=== PATIENT | female | born 1985 | race Caucasian/White ===

== ENCOUNTER → 2019-01-30 | Outpatient (CLI) | payer BC ==
--- NOTE | 2019-01-30 11:08 | Diagnostic Imaging Report ---
INDICATION: survey. TECHNIQUE: Multiple real-time grayscale images were obtained over the gravid uterus. COMPARISON: None FINDINGS: There is a single live fetus in a cephalic presentation. heart rate was recorded at 153 bpm. Placenta is anterior. Amniotic fluid index is 8.5 cm. survey demonstrates kidneys, bladder and stomach unremarkable. brain is unremarkable. There is a three-vessel cord with normal insertion. The spine is unremarkable. Four-chamber heart view is limited due to position and maternal body habitus. Maternal adnexa was not evaluated. Biometrical measurements are as follows: Biparietal 4.60 cm, age 20 weeks 0 days. Head circumference 17.82 cm, age 20 weeks 2 days. Abdominal circumference 16.65 cm, age 21 weeks 5 days. Femur length 3.71 cm, age 21 weeks 6 days. Sonographic estimate age: 21 weeks 0 days. Sonographic estimated date of delivery: 06/12/2019. Estimated Weight: 430 gm (+/- 63 gm). LMP percentile: 98%. heart rate: 153 beats per minute. number: 1 of 1. IMPRESSION: Single live IUP 21 weeks 0 days gestational age. Estimated date of confinement sonographically is 06/12/2019. survey is unremarkable although the four-chamber heart view was limited due to lie and maternal body habitus. Dictated by: Dictated on workstation # [id number]
== END ==
LOC: RAD 09:40
PROVIDERS: ATTEND Nurse Practitioner Women's Health
DX: Z36.89 Encounter for other specified antenatal screening (principal); Z3A.21 21 weeks gestation of pregnancy
CPT/HCPCS: 76805

== ENCOUNTER → 2019-03-27 | Outpatient (CLI) | payer BC ==
--- NOTE | 2019-03-27 13:51 | Diagnostic Imaging Report ---
INDICATION: Followup anatomy TECHNIQUE: Multiple real-time grayscale images were obtained over the gravid uterus. COMPARISON: 01/30/2019 FINDINGS: A single living intrauterine in the base presentation. Amniotic fluid index is 13.4. Placenta is anterior. Heart rate 143 bpm. There is a 4 chambered heart. IMPRESSION: Single living intrauterine with sonographic estimated gestational age 28 weeks 1 day and estimated date confinement 06/18/2019 Normal 4 chambered heart with a heart rate of 143 bpm. Dictated by: Dictated on workstation # [id number]
== END ==
LOC: RAD 12:27
PROVIDERS: ATTEND Obstetrics & Gynecology
DX: Z36.2 Encounter for other antenatal screening follow-up (principal); Z3A.28 28 weeks gestation of pregnancy
CPT/HCPCS: 76805

== ENCOUNTER → 2019-05-30 | Outpatient (CLI) | payer BC ==
--- NOTE | 2019-05-30 14:46 | Diagnostic Imaging Report ---
INDICATION: Evaluate growth. COMPARISON: March 27, 2019. TECHNIQUE: Multiple real-time grayscale images were obtained over the gravid uterus. FINDINGS: A single live intrauterine gestation is identified in a cephalic presentation. The placenta is anteriorly located without evidence of placenta previa. Amniotic fluid index is within normal limits at 10.0 cm with the largest single pocket measuring 3.9 cm. cardiac motion is documented at 152 bpm. biometrics are symmetric. They are consistent with an estimated gestational age of 37 weeks and 5 days. Therefore, there is estimated due date based upon this examination of June 15, 2019. Findings are consistent with clinical dating and there has been adequate interval growth since the prior examination. anatomy is not optimally evaluated secondary to advanced gestational age and lie. Maternal ovaries were unable to be visualized secondary to the gravid uterus. Biometrical measurements are as follows: Biparietal 9.01 cm, age 36 weeks 4 days. Head circumference 32.78 cm, age 37 weeks 2 days. Abdominal circumference 34.80 cm, age 38 weeks 5 days. Femur length 7.46 cm, age 38 weeks 2 days. Sonographic estimate age: 37 weeks 5 days. Sonographic estimated date of delivery: 06/15/2019. Estimated Weight: 3405 gm (+/- 497 gm). LMP percentile: 79%. heart rate: 152 beats per minute. number: 1 of 1. IMPRESSION: Single live intrauterine gestation in a cephalic presentation with an estimated gestational age of 37 weeks and 5 days. Therefore, there is an estimated due date based upon this examination of June 15, 2019. Findings are consistent with clinical dating and there has been adequate interval growth since the prior examination. No acute abnormality. Dictated by: Dictated on workstation # [id number]
== END ==
LOC: RAD 13:42
PROVIDERS: ATTEND Obstetrics & Gynecology
DX: O36.63X0 Maternal care for excessive fetal growth, third trimester, not applicable or unspecified (principal); Z3A.37 37 weeks gestation of pregnancy
CPT/HCPCS: 76805

== ENCOUNTER 2019-06-13 20:05 | Inpatient (IN) | payer BC ==
[~2019-06-13] VITALS: Ht 175.3 cm; Wt 139.6 kg
[~2019-06-13 20:05] MED LIST: AMPICILLIN FOR IV USE 2,000 MG in WATER (STERILE) FOR INJECTION 14.8 ML IV SCH
--- NOTE | 2019-06-13 20:10 | NUR ---
DEO BOBO presented to unit via ambulatory from ED, accompanied by so, with c/o INDUCTION. DEO BOBO weighed, gowned, voided, and to bed. EFHM and TOCO applied, VS taken. DEO BOBO oriented to bed controls, call light, TV, heat, and A/C controls. above and further assessments carried out by bety ruiz.
[2019-06-13] MEDS ORDERED: LACTATED RINGERS 1,000 ML IV SCH (20:17)
[2019-06-13] MEDS ORDERED: PNV11TAB5 PO (20:22)
[2019-06-13] MEDS ORDERED: MISOPROSTOL 100 MCG (CYTOTEC) TAB PO NR (20:30)
[2019-06-13] MEDS ORDERED: AMPICILLIN FOR IV USE 1,000 MG in WATER (STERILE) FOR INJECTION 7.4 ML IV SCH (20:30)
[2019-06-13] MEDS ORDERED: TERBUTALINE INJ 1 MG/ML (BRETHINE) AMP SC PRN (20:30)
[2019-06-13] MEDS ORDERED: PROMETHAZINE INJ 25 MG/ML (PHENERGAN) AMP IVP PRN (20:30)
[2019-06-13] MEDS ORDERED: ZOLPIDEM 5 MG (AMBIEN) TAB PO PRN (20:30)
[2019-06-13] MEDS ORDERED: MINERAL OIL CONCENTRATE 99.9% 15 ML UDC TOP PRN (20:30)
[2019-06-13] MEDS ORDERED: morphine INJ 10 MG/ML 1ML (SYR OR VIAL) IVP PRN (20:30)
[2019-06-13 20:40] VITALS: BP 149/72
[2019-06-13 21:09] LABS: BASOPHILS % (AUTO) 0 % (0-10); EOSINOPHILS % (AUTO) 0 % (0-10); HEMATOCRIT 39 % (35-52); HEMOGLOBIN 12.9 G/DL (11.5-16.0); LYMPHOCYTES # (AUTO) 1.3 X 10^3 (1.0-4.0); LYMPHOCYTES % (AUTO) 14 % (12-44); MEAN CORPUSCULAR HEMOGLOBIN 30 PG (25-34); MEAN CORPUSCULAR HGB CONC 33 G/DL (32-36); MEAN CORPUSCULAR VOLUME 90 FL (80-99); MEAN PLATELET VOLUME 10.1 FL (7.4-10.4); MONOCYTES # (AUTO) 0.4 X 10^3 (0.0-1.0); MONOCYTES % (AUTO) 4 % (0-12); NEUTROPHILS # (AUTO) 7.3 X 10^3 (1.8-7.8); NEUTROPHILS % (AUTO) 81 % (42-75); PLATELET COUNT 214 10^3/uL (130-400); RED CELL DISTRIBUTION WIDTH 15.6 % (10.0-14.5)
[2019-06-13] MEDS: D5 LR IV SOLUTION 1,000 ML IV SCH (21:15)
[2019-06-13 21:26] LABS: ALANINE AMINOTRANSFERASE 14 U/L (0-55); ALBUMIN 3.4 GM/DL (3.2-4.5); ALKALINE PHOSPHATASE 148 U/L (40-136); BILIRUBIN,TOTAL 0.3 MG/DL (0.1-1.0); BUN/CREATININE RATIO 12; CALCIUM 9.2 MG/DL (8.5-10.1); CARBON DIOXIDE 17 MMOL/L (21-32); CHLORIDE 108 MMOL/L (98-107); CREATININE SERUM 0.78 MG/DL (0.60-1.30); GFR ESTIMATED > 60; GLUCOSE 150 MG/DL (70-105); POTASSIUM 3.5 MMOL/L (3.6-5.0); SODIUM 137 MMOL/L (135-145); TOTAL PROTEIN 6.4 GM/DL (6.4-8.2)
--- OUTSIDE RECORDS SUMMARY | 2019-06-13 21:45 | XMS REPORT | Continuity of Care Document ---
Author Organization Unknown Address Unknown Phone Unavailable Allergies There is no data. Medications There is no data. Problems Date Dx Coded Attending Type Code Diagnosis Diagnosed By 03/02/2019 STEPHANI HINOJOSA SQUAD BOSS Ot Z36.89 ENCOUNTER FOR OTHER SPECIFIED 03/02/2019 STEPHANI HINOJOSA SQUAD BOSS Ot Z3A.21 21 WEEKS GESTATION OF 03/28/2019 BEASLEY DO, ELIZA C Ot Z36.2 ENCOUNTER FOR OTHER SCREENING 03/28/2019 BEASLEY DO, ELIZA C Ot Z3A.2 8 28 WEEKS GESTATION OF 04/03/2019 BEASLEY DO, ELIZA C Ot Z36.2 ENCOUNTER FOR OTHER SCREENING 04/03/2019 BEASLEY DO, ELIZA C Ot Z3A.2 8 28 WEEKS GESTATION OF 04/03/2019 BEASLEY DO, ELIZA C Ot Z36.2 ENCOUNTER FOR OTHER SCREENING 04/03/2019 BEASLEY DO, ELIZA C Ot Z3A.2 8 28 WEEKS GESTATION OF 04/20/2019 BEASLEY DO, ELIZA C Ot Z36.2 ENCOUNTER FOR OTHER SCREENING 04/20/2019 BEASLEY DO, ELIZA C Ot Z3A.2 8 28 WEEKS GESTATION OF 05/31/2019 BEASLEY DO, ELIZA C Ot O36.63X0 MATERNAL CARE FOR EXCESS GROWTH, T 05/31/2019 BEASLEY DO, ELIZA C Ot Z3A.3 7 37 WEEKS GESTATION OF 05/31/2019 BEASLEY DO, ELIZA C Ot O36.63X0 MATERNAL CARE FOR EXCESS GROWTH, T 05/31/2019 BEASLEY DO, ELIZA C Ot Z3A.3 7 37 WEEKS GESTATION OF 06/02/2019 BEASLEY DO, ELIZA C Ot O36.63X0 MATERNAL CARE FOR EXCESS GROWTH, T 06/02/2019 BEASLEY DO, ELIZA C Ot Z3A.3 7 37 WEEKS GESTATION OF 06/02/2019 BEASLEY DO, ELIZA C Ot O36.63X0 MATERNAL CARE FOR EXCESS GROWTH, T 06/02/2019 ELIZA BEASLEY DO Ot Z3A.3 7 37 WEEKS GESTATION OF 06/13/2019 ELIZA BEASLEY DO Ot O36.63X0 MATERNAL CARE FOR EXCESS GROWTH, T 06/13/2019 BEASLEY DO ELIZA Mayank Ot Z3A.3 7 37 WEEKS GESTATION OF Procedures There is no data. Results There is no data. Encounters ACCT No. Visit Date/Time Discharge Status Pt. Type Provider Facility Loc./Unit Complaint [id number] 05/30/2019 13:42:00 020 23:59:59 CLS Outpatient ELIZA BEASLEY DO [facility] LARGE FOR GESTATIONAL A GE FETUS AFFECTING MOTHER [id number] 03/27/2019 12:27:00 020 23:59:59 CLS Outpatient ELIZA BEASLEY DO [facility] EVALUATE ANATOMY NOT SE EN ON PRIOR US [id number] 01/30/2019 09:40:00 019 23:59:59 CLS Outpatient STEPHANI HINOJOSA APRN [facility]
[2019-06-13 22:50] VITALS: BP 133/74
[2019-06-14] VITALS (60 sets, daily range): BP systolic 98–143; BP diastolic 51–86
[2019-06-14] MEDS ORDERED: LACTATED RINGERS 1,000 ML IV SCH
[2019-06-14] MEDS: AMPICILLIN FOR IV USE 1,000 MG in WATER (STERILE) FOR INJECTION 7.4 ML IV SCH ×7 (01:04→20:57)
[2019-06-14] MEDS: MISOPROSTOL 100 MCG (CYTOTEC) TAB PO SCH ×5 (04:27→16:30)
[2019-06-14] MEDS: D5 LR IV SOLUTION 1,000 ML IV SCH ×3 (05:06→20:57)
[2019-06-14] MEDS ORDERED: OXYTOCIN PRE-MIX DRIP 500 ML IV SCH (13:23)
[2019-06-14] MEDS ORDERED: fentaNYL 2 mcg/ml BUPIVA 0.125 100 ML ONE (16:27)
[2019-06-14] MEDS ORDERED: AMPICILLIN FOR IV USE 2,000 MG in WATER (STERILE) FOR INJECTION 14.8 ML IV SCH (16:46)
[2019-06-14] MEDS ORDERED: fentaNYL INJECTION 100 MCG/2 ML AMP ONE (17:42)
[2019-06-14] MEDS ORDERED: LACTATED RINGERS 1,000 ML IV ONE (17:56)
[2019-06-14] MEDS ORDERED: METOCLOPRAMIDE INJ 10 MG/2 ML (REGLAN) IV PRN (18:00)
[2019-06-14] MEDS ORDERED: EPIDURAL (fentaNYL 2 MCG/ML BUPIVA 0.125%)100 ML BAG EPI PRN (18:00)
[2019-06-14] MEDS ORDERED: diphenhydrAMINE 50 MG/ML INJ (BENADRYL) IV PRN (18:00)
[2019-06-14] MEDS ORDERED: NALOXONE 0.4 MG/ML 1 ML (NARCAN) VIAL IV PRN ×2 (18:00)
[2019-06-14] MEDS ORDERED: ONDANSETRON 4 MG/2 ML (SDV) Z0FRAN IV PRN (18:00)
--- NOTE | 2019-06-14 20:08 | NUR ---
Dr. Mendoza updated on patient status. No new orders received at this time.
[2019-06-15] VITALS (47 sets, daily range): BP systolic 115–149; BP diastolic 55–80
[2019-06-15] MEDS ORDERED: LIDOCAINE/EPI 2% 1:200,00 (XYLOCAINE) 20 ML VIAL ONE (00:46)
[2019-06-15] MEDS: AMPICILLIN FOR IV USE 1,000 MG in WATER (STERILE) FOR INJECTION 7.4 ML IV SCH ×2 (00:56→05:34)
[2019-06-15] MEDS: D5 LR IV SOLUTION 1,000 ML IV SCH (05:34)
--- NOTE | 2019-06-15 08:01 | NUR ---
0759 Delivery of infant head. meconium stained fluid. Deelee suction at perineum via Dr Mendoza. 0801 of viable baby girl infant via Dr Mendoza. Loose nuchal cord x 1 was not reduced. Mouth and nose cleared via Dr Mendoza. Infant dried and stimulated and placed on mom's abdomen. Hubert Arguello RN assuming care of . [address] Mendoza and cut via Dad. Babe taken to warmer. 0810 Placenta delivered pitocin started per Dr soliman. Fundal massage. Fundus firm and at umbilicus. 0815 1 degree laceration repaired via Dr Mendoza with 3.0 Rapide. 0830 Dariana care and clean v-pad placed. Pt to semi fowlers and covered with warm blanket. Dad at bedside. Epidural stopped. Call light within reach. See nursing interventions.
--- NOTE | 2019-06-15 08:28 | NUR ---
0828Fundal massage. FF @ Umbilicus. mod amount of rubra. No clots express. Pt denies pain. IV infusing without difficulty. Skin w/d. No concerns voiced via pt. No s/s of distress. 0851 Fundal massage. FF @ Umbilicus. mod amount of rubra. No clots express. 0913Fundal massage. FF @ Umbilicus. mod amount of rubra. No clots express. 0928 Fundal massage. FF @ Umbilicus. mod amount of rubra. No clots express. 0940 Epidural cath removed without difficulty and tip intact.. Band aide applied. Site clean and dry. asymptomatic. 0941Fundal massage. FF @ Umbilicus. mod amount of rubra. No clots express. Pt eating breakfast. 0943 Fundal massage. FF @ Umbilicus. mod amount of rubra. No clots express. 1015 Fundal massage. FF 1 below umbilicus. mod amount of rubra. No clots express. See nursing interventions.
--- NOTE | 2019-06-15 08:39 | OB Labor & Delivery Record ---
Vag Delivery Note Vag Delivery Note Date of Delivery: 06/15/19 Preoperative Diagnosis: Marjorie Clifton is a 33 /Para 1/ , Gestational Age 39 2/7 weeks, gestational hypertension/mild preeclampsia, GBS + Postoperative Diagnosis: Same, meconium Surgeon: ELIZA BEASLEY Anesthesia: epidural Delivery Type: vaginal Findings: Viable famale infant, apgars 7/9, weight 8#2ounces Lacerations: 1st degree Intact placenta with 3 vessel cord. There was a nuchal cord delivered through. No body cord or shoulder dystocia Estimated Blood Loss: 250 ml Complications: None Condition: Stable Description of Procedure: The patient is a 33 year old female who presented for induction of labor at 39 2/7 weeks due to worsening blood pressures in the office (gestational hypertension/mild preeclampsia). She is GBS +. She was admitted and informed consent was obtained. Cervix was not favorable so misoprostol was used for cervical ripening. AROM was accomplished after 4 doses of misoprostol. She had also had 4 doses of IV ampicillin for GBS prophylaxis. AROM was accomplished at 2-3 cm, but baby was still -3 and there was meconium. There was oxytocin augmentation She progressed to complete dilatation at approximately 215 am, but she had no urge to push and head was still -2 station. She was allowed to labor down and in different positions until the head was lower and she had an urge to push. She then was set up for delivery and began to push. The 's head was delivered atraumatically in the JEREMI position. The shoulders and remainder of the 's body were then delivered without difficulty. Upon delivery, the head was held below the level of the perineum and the mouth and nares were Delee suctioned due to the meconium stained fluid. The cord was doubly clamped and cut and the infant was handed off to the pediatric staff. An intact placenta with 3-vessel cord delivered via Adelaida and there was found to be minimal bleeding.~ Vigorous fundal massage was performed and the fundus was found to be firm. IV oxytocin was given. Examination of the vagina and perineum revealed a 1st degree laceration repaired in the usual fashion with 3-0 vicryl suture. Following the repair, sponge, instrument and needle counts were correct. Mom and baby were both in stable condition in the labor suite. Vitals - Labs Vital Signs - I&O Vital Signs Date Time Temp Pulse Resp B/P (MAP) Pulse Ox O2 Delivery O2 Flow Rate FiO2 06/15/19 07:00 117 18 146/66 (92) Room Air 06/15/19 06:55 117 18 146/66 (92) Room Air 06/15/19 06:45 108 18 139/64 (89) Room Air 06/15/19 06:30 37.0 112 18 131/60 (83) Room Air 06/15/19 06:15 116 18 138/63 (88) Room Air 06/15/19 06:00 109 18 132/60 (84) Room Air 06/15/19 05:45 110 18 125/58 (80) Room Air 06/15/19 05:30 100 18 119/55 (76) Room Air 06/15/19 05:15 114 18 127/59 (81) Room Air 06/15/19 05:00 106 18 134/76 (95) Room Air 06/15/19 04:45 104 18 121/64 (83) Room Air 06/15/19 04:30 97 18 126/73 (90) Room Air 06/15/19 04:15 103 18 125/58 (80) Room Air 06/15/19 04:00 36.8 103 18 120/56 (77) Room Air 06/15/19 03:45 117 18 132/80 (97) Room Air 06/15/19 03:30 104 18 116/64 (81) Room Air 06/15/19 03:15 111 18 124/58 (80) Room Air 06/15/19 03:00 103 18 137/66 (89) Room Air 06/15/19 02:45 98 18 130/60 (83) Room Air 06/15/19 02:30 96 18 137/69 (91) Room Air 06/15/19 02:15 106 18 142/76 (98) Room Air 06/15/19 02:00 37.2 105 18 133/70 (91) Room Air 06/15/19 01:45 96 18 129/64 (85) Room Air 06/15/19 01:30 104 18 133/74 (93) Room Air 06/15/19 01:15 103 18 133/66 (88) Room Air 06/15/19 01:00 109 18 129/64 (85) Room Air 06/15/19 00:45 101 18 133/63 (86) Room Air 06/15/19 00:30 110 18 144/63 (90) Room Air 06/15/19 00:00 36.7 102 18 115/61 (79) Room Air 06/14/19 23:45 102 18 141/58 (85) Room Air 06/14/19 23:30 107 18 133/69 (90) Room Air 06/14/19 23:15 94 18 125/65 (85) Room Air 06/14/19 23:00 36.6 103 18 135/66 (89) Room Air 06/14/19 22:45 101 18 136/78 (97) Room Air 06/14/19 22:30 100 18 123/74 (90) Room Air 06/14/19 22:15 36.4 103 18 141/66 (91) Room Air 06/14/19 22:00 94 18 133/76 (95) Room Air 06/14/19 21:45 101 18 129/76 (93) Room Air 06/14/19 21:30 95 18 129/70 (89) Room Air 06/14/19 21:15 102 18 122/67 (85) Room Air 06/14/19 21:00 36.9 95 18 126/72 (90) Room Air 06/14/19 20:45 93 18 134/63 (86) Room Air 06/14/19 20:30 101 18 123/66 (85) Room Air 06/14/19 20:15 103 18 132/65 (87) Room Air 06/14/19 20:00 36.7 95 18 132/64 (86) Room Air 06/14/19 19:45 99 18 130/67 (88) Room Air 06/14/19 19:30 100 18 124/64 (84) Room Air 06/14/19 19:15 101 18 121/71 (88) Room Air 06/14/19 19:00 125 18 99/61 (74) Room Air 06/14/19 18:45 118 18 100/60 (73) Room Air 06/14/19 18:30 105 18 98/51 (67) 100 06/14/19 18:15 115 18 104/57 (73) 100 06/14/19 18:10 116 18 105/52 (69) 100 06/14/19 18:07 107 18 107/56 (73) 100 Room Air 06/14/19 18:03 103 18 111/56 (74) 100 06/14/19 18:00 37.0 113 18 109/56 (73) 100 06/14/19 17:56 106 18 113/53 (73) 100 06/14/19 17:53 100 18 109/53 (71) 100 06/14/19 17:50 110 18 106/53 (70) 100 06/14/19 17:47 113 18 128/61 (83) 100 06/14/19 17:43 119 18 128/58 (81) 100 06/14/19 17:40 100 18 136/65 (88) 98 06/14/19 17:37 109 18 135/68 (90) 98 06/14/19 17:34 109 20 131/67 (88) 100 06/14/19 17:31 110 20 125/67 (86) 100 06/14/19 17:28 113 20 131/75 (93) 100 06/14/19 17:25 101 20 128/79 (95) 100 06/14/19 17:22 101 20 128/79 (95) 100 06/14/19 17:19 103 20 127/62 (83) 100 06/14/19 17:16 97 20 128/66 (86) 100 06/14/19 17:13 97 20 128/66 (86) 100 06/14/19 17:10 105 20 132/79 (96) 100 06/14/19 17:07 110 18 132/79 (96) 100 06/14/19 16:30 37.2 95 18 100 Room Air 06/14/19 15:30 36.8 90 18 112/59 (76) Room Air 06/14/19 14:30 36.8 106 18 143/86 (105) 06/14/19 13:30 36.8 99 18 118/75 (89) 06/14/19 12:40 37.0 93 18 117/69 (85) Room Air 06/14/19 11:30 36.9 91 18 133/64 (87) Room Air 06/14/19 10:30 36.9 96 18 120/64 (82) Room Air 06/14/19 10:00 Room Air 06/14/19 09:30 37.4 100 18 137/78 (97) Room Air l I & O 06/15/19 07:00 Intake Total 3014.8 ml Balance 3014.8 ml Labs Microbiology 06/13/19 Urine Culture - Preliminary, Resulted Culture In Progress ELIZA BEASLEY DO June 15, 2019 08:39
[2019-06-15] MEDS ORDERED: OXYTOCIN PRE-MIX DRIP 500 ML IV SCH (08:43)
[2019-06-15] MEDS ORDERED: WITCH HAZEL(TUCKS) 40 EA JAR TOP PRN (08:45)
[2019-06-15] MEDS ORDERED: BENZOCAINE/MENTHOL (DERMOPLAST) 60 ML CAN TP PRN (08:45)
[2019-06-15] MEDS ORDERED: DIBUCAINE (NUPERCAINAL) 1% OINT 30 GM TOP PRN (08:45)
[2019-06-15] MEDS ORDERED: TETANUS,DIPTH,PERTUSS P/F (BOOSTRIX) 0.5 ML VIAL IM ONE (08:45)
[2019-06-15] MEDS ORDERED: MEASLES,MUMPS,RUBELLA 1 EA INJ SQ ONE (08:45)
[2019-06-15] MEDS: DOCUSATE SODIUM 100 MG (COLACE) CAP PO SCH ×2 (12:17→20:43)
[2019-06-15] MEDS: FERROUS SULF 325 MG (IRON) TAB PO SCH (12:17)
[2019-06-15] MEDS: IBUPROFEN 600 MG (MOTRIN) TAB PO SCH ×2 (12:17→17:50)
[2019-06-15] MEDS ORDERED: CATHETER FLUSH 10 ML SYR IV SCH (14:00)
--- NOTE | 2019-06-15 15:01 | Anesthesia-Regional Post-Op ---
Regional Patient Condition Mental Status: Alert, Oriented x3 Circulation: Same as Pre-Op Headache: Absent Sensation: Full Recovery Motor Block: Absent Post Op Complications Complications None Follow Up Care/Instructions Patient Instructions None needed. Anesthesia/Patient Condition Patient is doing well, C/O some Lt hip pain which appears to be unrelated to her epidural. She states that several positions were used during delivery. She has stable vital signs, states her epidural didn't work as well this time as last, but had no apparent adverse anesthesia problems. CARLOS PERKINS DO June 15, 2019 15:01
[2019-06-15] MEDS: ACETAMINOPHEN 500 MG TAB (TYLENOL) PO SCH (15:18)
--- NOTE | 2019-06-15 16:30 | NUR ---
Report received from FIOR Sifuentes. care assumed of pt.
[2019-06-16 00:27] VITALS: BP 125/63
[2019-06-16] MEDS: ACETAMINOPHEN 500 MG TAB (TYLENOL) PO SCH ×2 (00:29→08:31)
[2019-06-16] MEDS: IBUPROFEN 600 MG (MOTRIN) TAB PO SCH ×3 (00:29→12:19)
[2019-06-16 04:25] VITALS: BP 110/67
[2019-06-16 06:12] LABS: BASOPHILS % (AUTO) 0 % (0-10); EOSINOPHILS # (AUTO) 0.1 10^3/uL (0.0-0.3); EOSINOPHILS % (AUTO) 1 % (0-10); HEMATOCRIT 33 % (35-52); HEMOGLOBIN 10.8 G/DL (11.5-16.0); LYMPHOCYTES # (AUTO) 1.7 X 10^3 (1.0-4.0); LYMPHOCYTES % (AUTO) 19 % (12-44); MEAN CORPUSCULAR HEMOGLOBIN 30 PG (25-34); MEAN CORPUSCULAR HGB CONC 33 G/DL (32-36); MEAN CORPUSCULAR VOLUME 92 FL (80-99); MONOCYTES # (AUTO) 0.5 X 10^3 (0.0-1.0); MONOCYTES % (AUTO) 5 % (0-12); NEUTROPHILS # (AUTO) 6.9 X 10^3 (1.8-7.8); NEUTROPHILS % (AUTO) 75 % (42-75); PLATELET COUNT 147 10^3/uL (130-400); RED CELL DISTRIBUTION WIDTH 15.9 % (10.0-14.5); WHITE BLOOD COUNT 9.3 10^3/uL (4.3-11.0)
[2019-06-16] MEDS ORDERED: PRENATAL VITAMIN 1 EA TAB PO SCH (07:00)
[2019-06-16 08:27] VITALS: BP 125/76
[2019-06-16] MEDS: DOCUSATE SODIUM 100 MG (COLACE) CAP PO SCH (08:29)
[2019-06-16] MEDS: FERROUS SULF 325 MG (IRON) TAB PO SCH (08:29)
[2019-06-16 12:18] VITALS: BP 132/80
--- NOTE | 2019-06-16 12:35 | Postpartum Progress Note ---
Note Note Day # 1 s/p Subjective: Patient is without complaints. Ambulating, voiding. Tolerating a regular diet w ithout nausea or vomiting. Normal lochia. Pain is well controlled with oral pain medications. breast feeding Objective: 06/16/19 06/16/19 06/16/19 04:25 08:27 12:18 Temp 36.5 36.9 36.6 Pulse 87 103 84 Resp 16 20 18 B/P (MAP) 110/67 (81) 125/76 (92) 132/80 (97) Pulse Ox 97 97 O2 Delivery Room Air Room Air Room Air 06/16/19 00:00 Intake Total 2000 ml Balance 2000 ml Laboratory Tests Test 06/16/19 06:03 Range/Units White Blood Count 9.3 4.3-11.0 10^3/uL Red Blood Count 3.55 L 4.35-5.85 10^6/uL Hemoglobin 10.8 L 11.5-16.0 G/DL Hematocrit 33 L 35-52 % Mean Corpuscular Volume 92 80-99 FL Mean Corpuscular Hemoglobin 30 25-34 PG Mean Corpuscular Hemoglobin Concent 33 32-36 G/DL Red Cell Distribution Width 15.9 H 10.0-14.5 % Platelet Count 147 130-400 10^3/uL Mean Platelet Volume 10.0 7.4-10.4 FL Neutrophils (%) (Auto) 75 42-75 % Lymphocytes (%) (Auto) 19 12-44 % Monocytes (%) (Auto) 5 0-12 % Eosinophils (%) (Auto) 1 0-10 % Basophils (%) (Auto) 0 0-10 % Neutrophils # (Auto) 6.9 1.8-7.8 X 10^3 Lymphocytes # (Auto) 1.7 1.0-4.0 X 10^3 Monocytes # (Auto) 0.5 0.0-1.0 X 10^3 Eosinophils # (Auto) 0.1 0.0-0.3 10^3/uL Basophils # (Auto) 0.0 0.0-0.1 10^3/uL Physical Exam: General - Alert and oriented, no apparent distress Abdomen - Soft, appropriately tender to palpation, non-distended, fundus firm at umbilicus Extremities - no edema, negative Sourav's bilaterally Assessment: 1. post- day # 1, status post spontaneous vaginal delivery. Recovering well, hemodynamically stable [] Plan: Routine care. Encourage breast feeding. Encourage ambulation. Ferrous sulfate supplementation. Plan for discharge tomorrow Vitals - Labs Vital Signs - I&O Vital Signs Date Time Temp Pulse Resp B/P (MAP) Pulse Ox O2 Delivery O2 Flow Rate FiO2 06/16/19 12:18 36.6 84 18 132/80 (97) Room Air 06/16/19 08:27 36.9 103 20 125/76 (92) 97 Room Air 06/16/19 04:25 36.5 87 16 110/67 (81) 97 Room Air 06/16/19 00:27 36.8 88 20 125/63 (83) 98 Room Air 06/15/19 20:37 36.3 89 18 125/67 (86) 98 Room Air 06/15/19 16:30 37.4 95 18 120/55 (76) 97 Room Air I & O 06/16/19 07:00 Intake Total 2507.4 ml Balance 2507.4 ml Labs Laboratory Tests 06/16/19 06:03: White Blood Count 9.3, Red Blood Count 3.55L, Hemoglobin 10.8L, Hematocrit 33L, Mean Corpuscular Volume 92, Mean Corpuscular Hemoglobin 30, Mean Corpuscular Hemoglobin Concent 33, Red Cell Distribution Width 15.9H, Platelet Count 147, Mean Platelet Volume 10.0, Neutrophils (%) (Auto) 75, Lymphocytes (%) (Auto) 19, Monocytes (%) (Auto) 5, Eosinophils (%) (Auto) 1, Basophils (%) (Auto) 0, Neutrophils # (Auto) 6.9, Lymphocytes # (Auto) 1.7, Monocytes # (Auto) 0.5, Eosinophils # (Auto) 0.1, Basophils # (Auto) 0.0 Microbiology 06/13/19 Urine Culture - Final, Complete 3 or more isolates ELIZA BEASLEY DO June 16, 2019 12:35
[2019-06-16] MEDS ORDERED: IBUP-844 PO (12:40)
[2019-06-16] MEDS ORDERED: ACET-93 PO (12:40)
--- NOTE | 2019-06-16 12:42 | Discharge Inst-Women's Service ---
Discharge Inst-Women's Serv Depart Medication/Instructions New, Converted or Re-Newed RX: Transmitted to Pharmacy Instructions follow up in 1-2 week for BP check and 6 week for pp exam Final Diagnosis gestational hypertension vaginal delivery epidural Problems Reviewed?: Yes Consults/Follow Up Additional Follow Up: Yes Activity Activity: Activity as Tolerated Driving Instructions: You May Drive NO SMOKING: NO SMOKING Nothing Inside Vagina: No Douching, No [place], No Tampons Diet Discharge Diet: No Restrictions Symptoms to Report to : Swelling Increased, Bleeding Excessive, Pain Incr eased, Fever Over 101 Degrees F, Vaginal Bleeding Increase, Cramps in Feet or Legs, Vaginal Discharge Foul For Any Problems or Questions: Contact Your Physician ELIZA BEASLEY DO June 16, 2019 12:42
--- NOTE | 2019-06-16 15:30 | NUR ---
Dismissal instructions reviewed with mother. States understanding. Prescriptions transmitted to patient pharmacy. Follow up appointment made with Dr. Mendoza. Mother asked appropriate questions.
--- NOTE | 2019-06-16 16:45 | NUR ---
Pt ambulates off unit to private vehicle with all personal belongings accompanied by RN, S.O., and infant. No s/s of distress noted.
== END 2019-06-16 16:45 | disposition home or self-care (01) | DRG 807 ==
LOC: LDRP 20:05
PROVIDERS: ADMIT Obstetrics & Gynecology; ATTEND Obstetrics & Gynecology
PROC: 10E0XZZ Delivery of Products of Conception, External Approach (ICD-10-PCS; principal; 2019-06-15)
PROC: 0HQ9XZZ Repair Perineum Skin, External Approach (ICD-10-PCS; 2019-06-15)
PROC: 10907ZC Drainage of Amniotic Fluid, Therapeutic from Products of Conception, Via Natural or Artificial Opening (ICD-10-PCS; 2019-06-15)
DX: O14.04 Mild to moderate pre-eclampsia, complicating childbirth (principal); O99.824 Streptococcus B carrier state complicating childbirth; O77.0 Labor and delivery complicated by meconium in amniotic fluid; O70.0 First degree perineal laceration during delivery; O69.81X0 Labor and delivery complicated by cord around neck, without compression, not applicable or unspecified; Z37.0 Single live birth; Z3A.39 39 weeks gestation of pregnancy
CPT/HCPCS: 36415; 80053; 83615; 85025; 86850; 86900; 86901; 87088

== ENCOUNTER → 2020-04-12 | Outpatient (CLI) | payer BC ==
[~2020-04-12] MED LIST changes: +ACET-93 PO; -AMPICILLIN FOR IV USE 2,000 MG in WATER (STERILE) FOR INJECTION 14.8 ML IV SCH; +IBUP-844 PO; +PNV11TAB5 PO
[2020-04-12 15:06] LABS: CLARITY,URINE SLIGHTLY CLOUDY; COLOR,URINE YELLOW; GLUCOSE, URINE (UA) NEGATIVE (NEGATIVE); PROTEIN,URINE NEGATIVE (NEGATIVE)
[2020-04-12 15:07] LABS: BACTERIA,URINE FEW /HPF; BILIRUBIN,URINE NEGATIVE (NEGATIVE); KETONES,URINE NEGATIVE (NEGATIVE); LEUKOCYTE ESTERASE ,URINE NEGATIVE (NEGATIVE); NITRITE,URINE NEGATIVE (NEGATIVE); SQUAMOUS EPITHELIAL CELL,UR 25-50 /HPF; WBC,URINE 0-2 /HPF
== END ==
LOC: LAB FS 14:36
PROVIDERS: ATTEND Obstetrics & Gynecology
DX: R30.9 Painful micturition, unspecified (principal)
CPT/HCPCS: 81000; 87088

== ENCOUNTER → 2020-11-28 | Outpatient (CLI) | payer BC ==
[2020-11-28 16:04] LABS: HEMATOCRIT 43 % (35-52); HEMOGLOBIN 14.3 g/dL (11.5-16.0); MEAN CORPUSCULAR HEMOGLOBIN 29 pg (25-34); MEAN CORPUSCULAR HGB CONC 33 g/dL (32-36); MEAN CORPUSCULAR VOLUME 87 fL (80-99); MEAN PLATELET VOLUME 9.6 fL (9.0-12.2); PLATELET COUNT 274 10^3/uL (130-400); WHITE BLOOD COUNT 8.5 10^3/uL (4.3-11.0)
[2020-11-28 16:05] LABS: BASOPHILS % (AUTO) 1 % (0-10); EOSINOPHILS # (AUTO) 0.1 10^3/uL (0.0-0.3); EOSINOPHILS % (AUTO) 1 % (0-10); LYMPHOCYTES # (AUTO) 1.8 X 10^3 (1.0-4.0); LYMPHOCYTES % (AUTO) 21 % (12-44); MONOCYTES # (AUTO) 0.6 X 10^3 (0.0-1.0); MONOCYTES % (AUTO) 7 % (0-12); NEUTROPHILS % (AUTO) 71 % (42-75)
[2020-11-29 21:39] LABS: HEPATITIS C ANTIBODY C Non-Reactive (Non-Reactive)
== END ==
LOC: LAB FS 15:22
PROVIDERS: ATTEND Obstetrics & Gynecology
DX: Z36.9 Encounter for antenatal screening, unspecified (principal); Z33.1 Pregnant state, incidental; Z20.822 Contact with and (suspected) exposure to COVID-19
CPT/HCPCS: 36415; 80055; 84443; 84702; 86703; 86762; 86769; 86780; 86803; 87088

== ENCOUNTER → 2021-03-21 | Outpatient (CLI) | payer BC ==
--- NOTE | 2021-03-21 17:42 | Diagnostic Imaging Report ---
INDICATION: TECHNIQUE: Multiple real-time grayscale images were obtained over the gravid uterus. COMPARISON: None FINDINGS: Anatomical survey. FINDINGS: There is a single living intrauterine in a transverse presentation with the head to the maternal left. There is normal volume amniotic fluid. Placenta is posterior. There is a posterior placenta with a complete previa. Heart rate is 140 bpm and regular. The remainder of the anatomical survey is unremarkable. This includes a four-chamber heart and a three-vessel cord. Cervical length 9.3 cm. outflow tracts were not well-visualized. IMPRESSION: Complete placenta previa which is posterior. Suboptimal views of the outflow tracts due to positioning. The biometry correlates with a gestational age of 21 weeks 1 day and an estimated date of confinement of 07/31/2021. Biometrical measurements are as follows: Biparietal 4.99 cm, age 21 weeks 1 days. Head circumference 18.95 cm, age 21 weeks 2 days. Abdominal circumference 15.39 cm, age 20 weeks 5 days. Femur length 3.58 cm, age 21 weeks 3 days. Sonographic estimate age: 21 weeks 1 days. Sonographic estimated date of delivery: 07/31/2021. Estimated Weight: 390 gm (+/- 57 gm). LMP percentile: 82%. heart rate: 140 beats per minute. number: 1 of 1. Dictated by: Dictated on workstation # [id number]
== END ==
LOC: RAD 15:15
PROVIDERS: ATTEND Nurse Practitioner Women's Health
DX: Z34.82 Encounter for supervision of other normal pregnancy, second trimester (principal); Z3A.21 21 weeks gestation of pregnancy
CPT/HCPCS: 76805

== ENCOUNTER → 2021-05-01 | Outpatient (CLI) | payer BC ==
--- NOTE | 2021-05-01 15:07 | Diagnostic Imaging Report ---
INDICATION: Placenta previa without hemorrhage. TECHNIQUE: Multiple Real-time grayscale images were obtained over the gravid uterus. COMPARISON: 03/21/2021. FINDINGS: The cervix measures 4.2 cm in length and is closed. The placenta is posterior in position and the tip of the placenta is located between 6 to 10 cm cranial to the internal cervical os. Therefore, there is no longer a placenta previa present. heart rate is 144 BPM. THOMAS is normal at 20.0 cm. Fetus is in breech presentation during this exam. The following structures are seen and normal: Profile, lips/nose, and three-vessel cord. IMPRESSION: Resolution of placenta previa. Inferior tip of the cervix is now between 6 to 10 cm cranial to the internal cervical os. Dictated by: Dictated on workstation # [id number]
== END ==
LOC: RAD FS 09:45
PROVIDERS: ATTEND Obstetrics & Gynecology
DX: O44.02 Complete placenta previa NOS or without hemorrhage, second trimester (principal)
CPT/HCPCS: 76816

== ENCOUNTER → 2021-05-29 | Outpatient (CLI) | payer BC ==
--- NOTE | 2021-05-29 14:36 | Diagnostic Imaging Report ---
INDICATION: Follow-up outflow tracts. TECHNIQUE: Multiple real-time grayscale images were obtained over the gravid uterus. COMPARISON: 05/01/2021. FINDINGS: There is a single live fetus in a breech presentation. heart rate was recorded at 152 BPM. Placenta is posterior. Placental tip to the internal cervical os is 7.8 cm. Cervical length is 4.9 cm. Outflow tracts were visualized. Amniotic fluid volume appears normal. IMPRESSION: Unremarkable follow-up obstetrical ultrasound. Dictated by: Dictated on workstation # [id number]
== END ==
LOC: RAD 12:00
PROVIDERS: ATTEND Obstetrics & Gynecology
DX: Z34.82 Encounter for supervision of other normal pregnancy, second trimester (principal)
CPT/HCPCS: 76816

== ENCOUNTER → 2021-07-24 | Outpatient (CLI) | payer BC ==
[~2021-07-24] MED LIST changes: +ACHD5005 PO; +BENZ78AE5 TP; +BUPIVACAINE 0.25% 30 ML (SENSORCAINE) VIAL ONE; +DOCU100C37 PO; +fentaNYL INJ 100 MCG/2 ML AMP ONE
== END ==
LOC: LABNPT 15:40
PROVIDERS: ATTEND Obstetrics & Gynecology
DX: R03.0 Elevated blood-pressure reading, without diagnosis of hypertension (principal)
CPT/HCPCS: 82570; 84156

== ENCOUNTER 2021-07-30 18:52 | Inpatient (IN) | payer BC ==
[~2021-07-30] VITALS: Ht 175.3 cm; Wt 150.8 kg
[2021-07-30] VITALS (9 sets, daily range): BP systolic 112–173; BP diastolic 59–97
[~2021-07-30 18:52] MED LIST changes: -ACHD5005 PO; -BENZ78AE5 TP; -BUPIVACAINE 0.25% 30 ML (SENSORCAINE) VIAL ONE; -DOCU100C37 PO; -fentaNYL INJ 100 MCG/2 ML AMP ONE
[2021-07-30] MEDS ORDERED: NS IV 1000 ML 1,000 ML ONE (20:12)
[2021-07-30] MEDS ORDERED: NS IV 1000 ML 1,000 ML IV SCH (20:15)
[2021-07-30] MEDS ORDERED: TERBUTALINE INJ 1 MG/ML (BRETHINE) AMP SC PRN (20:15)
[2021-07-30] MEDS ORDERED: D5 LR IV SOLUTION 1,000 ML IV ONE (21:23)
[2021-07-30] MEDS: D5 LR IV SOLUTION 1,000 ML IV SCH (21:38)
[2021-07-30 21:45] LABS: BASOPHILS % (AUTO) 0 % (0-10); EOSINOPHILS % (AUTO) 1 % (0-10); HEMATOCRIT 35 % (35-52); HEMOGLOBIN 11.3 g/dL (11.5-16.0); LYMPHOCYTES # (AUTO) 1.3 10^3/uL (1.0-4.0); LYMPHOCYTES % (AUTO) 21 % (12-44); MEAN CORPUSCULAR HEMOGLOBIN 31 pg (25-34); MEAN CORPUSCULAR HGB CONC 33 g/dL (32-36); MEAN CORPUSCULAR VOLUME 95 fL (80-99); MEAN PLATELET VOLUME 10.3 fL (9.0-12.2); MONOCYTES # (AUTO) 0.4 10^3/uL (0.0-1.0); MONOCYTES % (AUTO) 7 % (0-12); NEUTROPHILS # (AUTO) 4.4 10^3/uL (1.8-7.8); NEUTROPHILS % (AUTO) 71 % (42-75); PLATELET COUNT 158 10^3/uL (130-400); WHITE BLOOD COUNT 6.2 10^3/uL (4.3-11.0)
[2021-07-30] MEDS ORDERED: CATHETER FLUSH 10 ML SYR IV SCH (22:00)
[2021-07-30] MEDS ORDERED: ACETAMINOPHEN 500 MG TAB (TYLENOL) ONE (22:54)
[2021-07-30] MEDS ORDERED: diphenhydrAMINE 25 MG TAB (BENADRYL) PO ONE (22:56)
[2021-07-30] MEDS ORDERED: diphenhydrAMINE 25 MG TAB (BENADRYL) PO PRN (23:00)
[2021-07-30] MEDS ORDERED: ACETAMINOPHEN 500 MG TAB (TYLENOL) PO PRN (23:00)
[2021-07-30 23:52] LABS: BILIRUBIN,URINE NEGATIVE (NEGATIVE); CLARITY,URINE CLEAR; COLOR,URINE YELLOW; GLUCOSE, URINE (UA) NEGATIVE (NEGATIVE); KETONES,URINE NEGATIVE (NEGATIVE); LEUKOCYTE ESTERASE ,URINE TRACE (NEGATIVE); NITRITE,URINE NEGATIVE (NEGATIVE); PROTEIN,URINE NEGATIVE (NEGATIVE)
[2021-07-30 23:53] LABS: BACTERIA,URINE MODERATE /HPF; WBC,URINE 0-2 /HPF
[2021-07-31] VITALS (67 sets, daily range): BP systolic 109–184; BP diastolic 55–100
[2021-07-31] MEDS: D5 LR IV SOLUTION 1,000 ML IV SCH ×3 (05:15→19:48)
--- NOTE | 2021-07-31 09:47 | History & Physical-OB ---
OB - Chief Complaint & HPI Date/Time Date of Admission: Date of Admission: Jul 30, 2021 at 6:52 pm Date seen by a Provider: Jul 31, 2021 Time Seen by a Provider: 08:15 Chief Complaint/History OB-Reason for Admission/Chief: Induction of Labor Hx : 2 Hx Para: 1 Expected Date of Delivery: Aug 06, 2021 Gestational Age in Weeks: 39 Admission Nurse Assessment Rev: Yes History of Labs GBS neg See PN labs Allergies and Home Medications Allergies Coded Allergies: cefprozil (Verified Allergy, Unknown, 06/13/19) latex (Verified Allergy, Unknown, 06/13/19) Patient Home Medication List Home Medication List Reviewed: Yes Acetaminophen (Acetaminophen) 500 Mg Tablet, 1,000 MG PO Q8HR Prescribed by: ELIZA BEASLEY on 06/16/19 1240 Ibuprofen (Ibu) 600 Mg Tablet, 600 MG PO Q6HR Prescribed by: ELIZA BEASLEY on 06/16/19 1240 Hte014/FA/Omega3/Dha/Fish Oil ( Gummies) 1 Each Tab.chew, 1 EACH PO DAILY, (Reported) Entered as Reported by: MANDO RENEE on 06/13/192021 OB - History Hx of Present Care: Yes Ultrasounds: Normal mid trimester US (LGA EFW 4100 gms last week at 38 weeks) Obstetrical Complications: None Medical Complications: None Patient Past Medical History BMI > 40 Immunizations Influenza Vaccine Up-to-Date: Yes; Up-to-Date Hepatitis A: Yes Hepatitis B: Yes OB - Admission Exam Physical Exam Vitals: Vital Signs 07/30/21 07/31/21 07/31/21 07/31/21 20:38 02:00 06:24 06:59 Temp 36.0 Pulse 90 Resp 20 B/P (MAP) 142/71 (94) Pulse Ox 98 O2 Delivery Room Air HEENT: NCAT Heart: Rhythm Normal Lungs: Clear Abdomen: Gravid Extremities: Normal Reflexes: Normal Cervical Dilatation: 2cm Effacement: 75% Station: -2 Membranes: Intact Heart Rate: 130's Accelerations: Accelerations Present Decelerations: No Decelerations Short Term Variability: Present Pan Washer Hand Variability: Average (6-25) Contractions on Admission: 6-10 Minutes Apart Intensity: Mild Labs Laboratory Tests Test 07/30/21 19:00 07/30/21 21:37 Range/Units Urine Color YELLOW Urine Clarity CLEAR Urine pH 7.0 5-9 Urine Specific [place] 1.025 H 1.016-1.022 Urine Protein NEGATIVE NEGATIVE Urine Glucose (UA) NEGATIVE NEGATIVE Urine Ketones NEGATIVE NEGATIVE Urine Nitrite NEGATIVE NEGATIVE Urine Bilirubin NEGATIVE NEGATIVE Urine Urobilinogen 1.0 < = 1.0 MG/DL Urine Leukocyte Esterase TRACE H NEGATIVE Urine RBC (Auto) NEGATIVE NEGATIVE Urine RBC NONE /HPF Urine WBC 0-2 /HPF Urine Squamous Epithelial Cells 10-25 H /HPF Urine Crystals NONE /LPF Urine Bacteria MODERATE H /HPF Urine Casts NONE /LPF Urine Mucus NEGATIVE /LPF Urine Culture Indicated YES White Blood Count 6.2 4.3-11.0 10^3/uL Red Blood Count 3.64 L 3.80-5.11 10^6/uL Hemoglobin 11.3 L 11.5-16.0 g/dL Hematocrit 35 35-52 % Mean Corpuscular Volume 95 80-99 fL Mean Corpuscular Hemoglobin 31 25-34 pg Mean Corpuscular Hemoglobin Concent 33 32-36 g/dL Red Cell Distribution Width 16.1 H 10.0-14.5 % Platelet Count 158 130-400 10^3/uL Mean Platelet Volume 10.3 9.0-12.2 fL Immature Granulocyte % (Auto) 1 % Neutrophils (%) (Auto) 71 42-75 % Lymphocytes (%) (Auto) 21 12-44 % Monocytes (%) (Auto) 7 0-12 % Eosinophils (%) (Auto) 1 0-10 % Basophils (%) (Auto) 0 0-10 % Neutrophils # (Auto) 4.4 1.8-7.8 10^3/uL Lymphocytes # (Auto) 1.3 1.0-4.0 10^3/uL Monocytes # (Auto) 0.4 0.0-1.0 10^3/uL Eosinophils # (Auto) 0.0 0.0-0.3 10^3/uL Basophils # (Auto) 0.0 0.0-0.1 10^3/uL Immature Granulocyte # (Auto) 0.1 0.0-0.1 10^3/uL OB - Assessment/Plan/Diagnosis Assessment Assessment: induction of labor Admission Dx 36 yo @ 39 weeks LGA BMI >40 GBS neg Admission Status: Inpatient Order (span 2 midnights) Reason for Inpatient Admission: IOL at 39 weeks Plan Plan: Induction Induction Method: per Misoprostol Protocol Other Plan AROM this AM. JAXON WOODY DO Jul 31, 2021 9:47 am
[2021-07-31] MEDS ORDERED: OXYTOCIN PRE-MIX DRIP 500 ML IV ONE (10:25)
[2021-07-31] MEDS ORDERED: LIDOCAINE/EPI 2% 1:200,00 (XYLOCAINE) 20 ML VIAL INJ ONE (10:45)
[2021-07-31] MEDS ORDERED: OXYTOCIN PRE-MIX DRIP 500 ML IV SCH (10:45)
[2021-07-31] MEDS ORDERED: fentaNYL 2 mcg/ml BUPIVA 0.125 100 ML ONE (11:05)
[2021-07-31] MEDS ORDERED: CATHETER FLUSH 10 ML SYR IV PRN (12:00)
[2021-07-31] MEDS ORDERED: LACTATED RINGERS 1,000 ML IV ONE (12:00)
[2021-07-31] MEDS ORDERED: NALOXONE 0.4 MG/ML 1 ML (NARCAN) VIAL IV PRN ×2 (12:00→21:30)
[2021-07-31] MEDS ORDERED: fentaNYL 2 mcg/ml BUPIVA 0.125 100 ML IV SCH (12:00)
[2021-07-31] MEDS ORDERED: LIDOCAINE/EPI 2% 1:200,00 (XYLOCAINE) 10 ML VIAL INJ PRN (19:45)
[2021-07-31] MEDS: OXYTOCIN PRE-MIX DRIP 500 ML IV SCH ×2 (21:00→21:30)
[2021-07-31] MEDS ORDERED: METHYLERGONOVINE 0.2 MG/ML (METHERGINE) AMP ONE (21:01)
--- NOTE | 2021-07-31 21:21 | OB Labor & Delivery Record ---
L&D History Date of Service Date of Service: Jul 31, 2021 History Expected Date of Delivery: Aug 06, 2021 Gestational Age in Weeks: 39 Hx : 2 Hx Para: 1 Complications Operative Indications (Cesarea: N/A-Vaginal Delivery Intrapartal Events: Ineffective Pushing L&D Stage1 Stage One Onset of Labor - Date: Jul 31, 2021 Monitors and Tracing Monitor Mode: Internal Heart Rate: 140 Monitor Accelerations: Uniform Monitor Decelerations: None Station: -2 Long-Term Variability: Average (6-10) Short Term Variability: Present Presentation: Vertex Vital Signs VS - Last 72 Hours, by Label 07/30/21 07/30/21 07/30/21 07/30/21 19:16 19:40 20:28 20:38 Temp 37.1 37.1 Pulse 125 103 101 103 Resp B/P (MAP) 173/78 (109) 144/70 (94) 131/72 (91) Pulse Ox 97 98 O2 Delivery Room Air Room Air 07/30/21 07/30/21 07/30/21 07/30/21 20:57 21:57 22:27 22:57 Pulse 92 89 91 96 B/P (MAP) 144/76 (98) 136/74 (94) 138/89 (105) 144/97 (113) 07/30/21 07/30/21 07/31/21 07/31/21 22:57 23:28 01:00 02:00 Temp 36.3 Pulse 88 83 85 Resp 22 20 B/P (MAP) 112/59 (76) 117/55 (75) 140/71 (94) 07/31/21 07/31/21 07/31/21 07/31/21 02:59 05:00 05:59 06:24 Temp 36.9 36.0 Pulse 100 90 85 79 B/P (MAP) 134/63 (86) 137/76 (96) 140/92 (108) 137/79 (98) 07/31/21 07/31/21 07/31/21 07/31/21 06:59 08:00 09:30 09:40 Temp 36.7 Pulse 90 93 88 83 Resp B/P (MAP) 142/71 (94) 141/84 (103) 137/75 (95) 141/87 (105) Pulse Ox 100 99 O2 Delivery Room Air Room Air Room Air 07/31/21 07/31/21 07/31/21 07/31/21 10:00 10:15 10:30 10:45 Pulse 85 90 96 89 Resp B/P (MAP) 145/85 (105) 142/88 (106) 141/89 (106) 143/80 (101) Pulse Ox 99 99 98 97 O2 Delivery Room Air Room Air Room Air Room Air 07/31/21 07/31/21 07/31/21 07/31/21 11:00 11:15 11:25 11:28 Temp 36.4 Pulse 86 93 98 106 Resp B/P (MAP) 138/77 (97) 132/78 (96) 138/81 (100) 143/79 (100) Pulse Ox 99 97 98 98 O2 Delivery Room Air Room Air Room Air Room Air 07/31/21 07/31/21 07/31/21 07/31/21 11:30 11:33 11:36 11:39 Pulse 102 103 103 109 Resp B/P (MAP) 144/75 (98) 142/81 (101) 133/70 (91) 138/70 (92) Pulse Ox 100 100 100 100 O2 Delivery Room Air Room Air Room Air Room Air 07/31/21 07/31/21 07/31/21 07/31/21 11:42 11:45 11:48 11:51 Pulse 98 122 113 113 Resp B/P (MAP) 184/100 (128) 159/76 (103) 159/71 (100) 149/62 (91) Pulse Ox 98 98 99 99 O2 Delivery Room Air Room Air Room Air Room Air 07/31/21 07/31/21 07/31/21 07/31/21 11:54 12:10 12:20 12:30 Temp 36.4 Pulse 121 99 121 111 Resp B/P (MAP) 139/62 (87) 142/65 (90) 132/62 (85) Pulse Ox 98 99 100 100 O2 Delivery Room Air Room Air Room Air Room Air 07/31/21 07/31/21 07/31/21 07/31/21 12:45 13:00 13:15 13:30 Pulse 121 114 98 93 Resp B/P (MAP) 127/62 (83) 143/62 (89) 139/78 (98) 142/71 (94) Pulse Ox 100 100 100 100 O2 Delivery Room Air Room Air Room Air Room Air 07/31/21 07/31/21 07/31/21 07/31/21 13:45 14:00 14:15 14:30 Temp 36.0 Pulse 110 105 114 123 Resp B/P (MAP) 148/81 (103) 141/65 (90) 135/74 (94) 122/81 (95) Pulse Ox 100 100 100 100 O2 Delivery Room Air Room Air Room Air Room Air 07/31/21 07/31/21 07/31/21 07/31/21 14:45 15:00 15:15 15:30 Pulse 104 108 107 103 Resp B/P (MAP) 137/70 (92) 118/61 (80) 119/71 (87) Pulse Ox 100 100 100 100 O2 Delivery Room Air Room Air Room Air Room Air 07/31/21 07/31/21 07/31/21 07/31/21 15:45 16:00 16:15 16:30 Pulse 107 112 103 116 Resp B/P (MAP) 134/81 (98) 142/76 (98) 131/71 (91) 134/67 (89) Pulse Ox 100 100 100 100 O2 Delivery Room Air Room Air Room Air Room Air 07/31/21 07/31/21 07/31/21 07/31/21 16:45 17:00 17:15 17:30 Pulse 115 117 111 116 Resp B/P (MAP) 126/65 (85) 123/70 (87) 110/67 (81) Pulse Ox 100 99 100 100 O2 Delivery Room Air Room Air Room Air Room Air 07/31/21 07/31/21 07/31/21 07/31/21 17:45 18:00 18:15 18:30 Pulse 117 104 111 110 Resp B/P (MAP) 133/70 (91) 136/63 (87) 125/70 (88) 125/71 (89) Pulse Ox 100 100 100 100 O2 Delivery Room Air Room Air Room Air Room Air Rupture of Membranes Spontaneous Ruture of Membrane: No Amniotic Membrane Rupture Time: 0838 Amniotic Membrane Fluid Desc.: Clear Vaginal Bleeding Description: Normal Show Induction/Anesthesia Epidural Cath Placement - Time: 1136 Progress/Notes Patient admitted for elective IOL, misoprostol was given PO overnight. She had AROM performed this am, followed by pitocin augmentation. SHe received an epidural and progressed to complete and + 1 station when she began to feel pressure and urge to push. L&D Stage2 Stage Two Stage II Date: Jul 31, 2021 Monitors and Tracing Monitor Mode: Internal Heart Rate: 140 Monitor Accelerations: Uniform Monitor Decelerations: Variable Seafood Fisherman Variability: Average (6-10) Short Term Variability: Present Position: Right Occiput Anterior Presentation: Vertex Signs of Distress by FHT Signs of Distress She progressed to +2-3 station when pushing became ineffective, and tachycardia was noted. I discussed with patient low vaccum extraction, risk involved and we agreed to proceed. Kiwi suction cup placed on sagital suture/ flexion point, with next maternal push suction applied to safe green zone, and gentle extension applied to the handpiece, this gently took two contractions and series of pushes. Once head was delivered, suction released, and the remainder of the delivery was unremarkable. Cord Descript/Complications Cord Vessel Description: 3 Vessels Complications nuchal x 1 Delivery Type Infant Delivery Method: Low Vacuum Extraction Anterior Shoulder: Right Episiotomy/Perineal Laceration Laceraction(s)/Extensions: Yes Episiotomy Description: Perineal Extension/lac, 2nd degree Degree (describe repair) laceration repaired using 3-0 rapide vicryl in usual fashion. Condition of Infant Delivery 1 minute Comment: 8 5 minute Comment: 9 Notes Live female weight 10lbs 13 oz. Condition of Condition of : Living Exam: No Observed Abnormalities Resuscitation Resuscitation: N/A - Spontaneous Resp L&D Stage3 Stage Three Stage III Date: Jul 31, 2021 Pictocin Pitocin Administration mu/min: 8 Pitocin ml/hr: 8 Pitocin Administration Comment: 30 mu wide open after delivery of placenta Placenta Delivery Placenta Delivery: Spontaneous Delivery Summary Summary Estimated blood loss (mL): 400 Attending at delivery: Jaxon Woody DO Condition of Delivery Examined: Cervix Examined, Uterus Explored Post Hemorrhage: No Intervention Required methergine 0.2 mg im given for residual bleeding that was occuring, but resolved thereafter. Condition of Mother stable Condition of Infant (s) stable JAXON WOODY DO Jul 31, 2021 21:21
--- NOTE | 2021-07-31 21:28 | Discharge Inst-Women's Service ---
Discharge Inst-Women's Serv Depart Medication/Instructions New, Converted or Re-Newed RX: Transmitted to Pharmacy Final Diagnosis PPD 2 VAVD Problems Reviewed?: Yes Consults/Follow Up Additional Follow Up: Yes Orders/Referrals Dr. Woody in 6 weeks Activity Activity: Activity as Tolerated Driving Instructions: No Driving for 1 Week NO SMOKING: NO SMOKING Nothing Inside Vagina: No Douching, No Wilsey, No Tampons Diet Discharge Diet: No Restrictions Symptoms to Report to : Bleeding Excessive, Pain Increased, Fever Over 101 Degrees F, Vaginal Bleeding Increase, Questions/Concerns For Any Problems or Questions: Contact Your Physician JAXON WODOY DO Jul 31, 2021 21:28
[2021-07-31] MEDS ORDERED: BENZ78AE5 TP (21:29)
[2021-07-31] MEDS ORDERED: IBUP-844 PO (21:29)
[2021-07-31] MEDS ORDERED: ACET-93 PO (21:29)
[2021-07-31] MEDS ORDERED: ACHD5005 PO (21:29)
[2021-07-31] MEDS ORDERED: DOCU100C37 PO (21:29)
[2021-07-31] MEDS ORDERED: TETANUS,DIPTH,PERTUSS P/F (BOOSTRIX) 0.5 ML VIAL IM ONE (21:30)
[2021-07-31] MEDS ORDERED: DIBUCAINE 1% OINTMENT 30 GM TUBE TOP PRN (21:30)
[2021-07-31] MEDS ORDERED: BENZOCAINE/MENTHOL (DERMOPLAST) 56 ML CAN TP PRN (21:30)
[2021-07-31] MEDS ORDERED: WITCH HAZEL(TUCKS) 40 EA JAR TOP PRN (21:30)
[2021-07-31] MEDS ORDERED: HYDROcodone/APAP 5 MG/325 MG (LORTAB) TAB PO PRN (21:30)
[2021-07-31] MEDS ORDERED: MEASLES,MUMPS,RUBELLA 1 EA INJ SQ ONE (21:30)
[2021-07-31] MEDS ORDERED: CATHETER FLUSH 10 ML SYR IV SCH (22:00)
[2021-07-31] MEDS ORDERED: METHYLERGONOVINE 0.2 MG/ML (METHERGINE) AMP IM ONE (22:30)
[2021-08-01] MEDS: IBUPROFEN 600 MG (MOTRIN) TAB PO SCH ×5 (00:07→23:42)
[2021-08-01 03:00] VITALS: BP 133/77
[2021-08-01 06:50] VITALS: BP 131/71
--- NOTE | 2021-08-01 07:30 | Postpartum Progress Note ---
Note Note Day # 1 Subjective: Patient is without complaints. Ambulating, voiding. Tolerating a regular diet without nausea or vomiting. Normal lochia. Pain is well controlled with oral pain medications. Objective: Physical Exam: General - Alert and oriented, no apparent distress Abdomen - Soft, appropriately tender to palpation, non-distended, fundus firm at umbilicus Extremities - no edema, negative Sourav's bilaterally Assessment: PPD 1 VAVD Acute blood loss anemia Plan: Routine care. Encourage breast feeding. Encourage ambulation. Ferrous sulfate supplementation. Plan for discharge tomorrow Vitals - Labs Vital Signs - I&O Vital Signs Date Time Temp Pulse Resp B/P (MAP) Pulse Ox O2 Delivery O2 Flow Rate FiO2 08/01/21 06:50 36.3 80 18 131/71 (91) 99 Room Air 08/01/21 03:00 36.5 90 18 133/77 (95) 96 Room Air 07/31/21 22:56 99 18 129/63 (85) Room Air 07/31/21 22:41 100 18 115/64 (81) Room Air 07/31/21 22:30 93 18 109/59 (76) Room Air 07/31/21 22:11 95 18 122/60 (80) Room Air 07/31/21 21:56 94 18 125/58 (80) Room Air 07/31/21 21:41 36.5 102 18 137/60 (85) Room Air 07/31/21 21:26 109 18 111/56 (74) Room Air 07/31/21 21:11 120 18 122/56 (78) Room Air 07/31/21 21:00 108 18 141/58 (85) Room Air 07/31/21 20:50 18 Room Air 07/31/21 20:45 122 18 126/61 (82) Room Air 07/31/21 20:30 36.7 125 18 131/61 (84) Room Air 07/31/21 20:15 112 18 141/71 (94) Room Air 07/31/21 20:00 101 18 152/67 (95) Room Air 07/31/21 19:45 109 18 126/60 (82) 100 Room Air 07/31/21 19:30 112 18 116/60 (78) 100 Room Air 07/31/21 19:15 107 18 121/65 (83) 100 Room Air 07/31/21 18:30 110 22 125/71 (89) 100 Room Air 07/31/21 18:15 111 22 125/70 (88) 100 Room Air 07/31/21 18:00 104 22 136/63 (87) 100 Room Air 07/31/21 17:45 117 22 133/70 (91) 100 Room Air 07/31/21 17:30 116 22 110/67 (81) 100 Room Air 07/31/21 17:15 111 22 123/70 (87) 100 Room Air 07/31/21 17:00 117 22 126/65 (85) 99 Room Air 07/31/21 16:45 115 22 100 Room Air 07/31/21 16:30 116 22 134/67 (89) 100 Room Air 07/31/21 16:15 103 22 131/71 (91) 100 Room Air 07/31/21 16:00 112 22 142/76 (98) 100 Room Air 07/31/21 15:45 107 22 134/81 (98) 100 Room Air 07/31/21 15:30 103 22 100 Room Air 07/31/21 15:15 107 22 119/71 (87) 100 Room Air 07/31/21 15:00 108 22 118/61 (80) 100 Room Air 07/31/21 14:45 104 22 137/70 (92) 100 Room Air 07/31/21 14:30 36.0 123 22 122/81 (95) 100 Room Air 07/31/21 14:15 114 22 135/74 (94) 100 Room Air 07/31/21 14:00 105 22 141/65 (90) 100 Room Air 07/31/21 13:45 110 22 148/81 (103) 100 Room Air 07/31/21 13:30 93 22 142/71 (94) 100 Room Air 07/31/21 13:15 98 22 139/78 (98) 100 Room Air 07/31/21 13:00 114 22 143/62 (89) 100 Room Air 07/31/21 12:45 121 22 127/62 (83) 100 Room Air 07/31/21 12:30 36.4 111 22 132/62 (85) 100 Room Air 07/31/21 12:20 121 22 100 Room Air 07/31/21 12:10 99 22 142/65 (90) 99 Room Air 07/31/21 11:54 121 22 139/62 (87) 98 Room Air 07/31/21 11:51 113 22 149/62 (91) 99 Room Air 07/31/21 11:48 113 22 159/71 (100) 99 Room Air 07/31/21 11:45 122 22 159/76 (103) 98 Room Air 07/31/21 11:42 98 22 184/100 (128) 98 Room Air 07/31/21 11:39 109 22 138/70 (92) 100 Room Air 07/31/21 11:36 103 22 133/70 (91) 100 Room Air 07/31/21 11:33 103 22 142/81 (101) 100 Room Air 07/31/21 11:30 102 22 144/75 (98) 100 Room Air 07/31/21 11:28 36.4 106 22 143/79 (100) 98 Room Air 07/31/21 11:25 98 22 138/81 (100) 98 Room Air 07/31/21 11:15 93 22 132/78 (96) 97 Room Air 07/31/21 11:00 86 22 138/77 (97) 99 Room Air 07/31/21 10:45 89 22 143/80 (101) 97 Room Air 07/31/21 10:30 96 22 141/89 (106) 98 Room Air 07/31/21 10:15 90 22 142/88 (106) 99 Room Air 07/31/21 10:00 85 22 145/85 (105) 99 Room Air 07/31/21 09:40 83 22 141/87 (105) 99 Room Air 07/31/21 09:30 88 22 137/75 (95) 100 Room Air 07/31/21 08:00 36.7 93 22 141/84 (103) Room Air I & O 08/01/21 07:00 Intake Total 2500 ml Balance 2500 ml Labs Microbiology 07/30/21 Urine Culture - Final, Complete Mixed Bacterial Zoila JAXON WOODY DO Aug 01, 2021 07:30
[2021-08-01 08:55] LABS: BASOPHILS % (AUTO) 0 % (0-10); EOSINOPHILS % (AUTO) 0 % (0-10); HEMATOCRIT 34 % (35-52); HEMOGLOBIN 11.2 g/dL (11.5-16.0); LYMPHOCYTES # (AUTO) 1.1 10^3/uL (1.0-4.0); LYMPHOCYTES % (AUTO) 14 % (12-44); MEAN CORPUSCULAR HEMOGLOBIN 31 pg (25-34); MEAN CORPUSCULAR HGB CONC 33 g/dL (32-36); MEAN CORPUSCULAR VOLUME 95 fL (80-99); MEAN PLATELET VOLUME 10.1 fL (9.0-12.2); MONOCYTES # (AUTO) 0.3 10^3/uL (0.0-1.0); MONOCYTES % (AUTO) 4 % (0-12); NEUTROPHILS # (AUTO) 6.3 10^3/uL (1.8-7.8); NEUTROPHILS % (AUTO) 81 % (42-75); PLATELET COUNT 141 10^3/uL (130-400); WHITE BLOOD COUNT 7.9 10^3/uL (4.3-11.0)
[2021-08-01 09:10] VITALS: BP 117/70
[2021-08-01] MEDS: DOCUSATE SODIUM 100 MG (COLACE) CAP PO SCH ×2 (09:12→23:42)
[2021-08-01] MEDS: PRENATAL VITAMIN 1 EA TAB PO SCH (09:13)
[2021-08-01] MEDS: FERROUS SULF 325 MG (IRON) TAB PO SCH (09:13)
--- NOTE | 2021-08-01 09:58 | Anesthesia-General Post-Op ---
MAC Patient Condition Mental Status/LOC: Same as Preop Cardiovascular: Satisfactory Nausea/Vomiting: Absent Respiratory: Satisfactory Pain: Controlled Complications: Absent Post Op Complications Complications None Follow Up Care/Instructions Patient Instructions None needed. Anesthesiology Discharge Order Discharge Order Patient is doing well, no complaints, stable vital signs, no apparent adverse anesthesia problems. No complications reported per nursing. KALPANA ROMO CRNA Aug 01, 2021 09:58
[2021-08-01 11:53] VITALS: BP 133/80
[2021-08-01 16:05] VITALS: BP 125/75
[2021-08-01 23:18] VITALS: BP 127/70
[2021-08-02] MEDS: IBUPROFEN 600 MG (MOTRIN) TAB PO SCH ×2 (06:19→13:24)
[2021-08-02 06:22] VITALS: BP 121/68
[2021-08-02] MEDS: DOCUSATE SODIUM 100 MG (COLACE) CAP PO SCH (08:42)
[2021-08-02] MEDS: PRENATAL VITAMIN 1 EA TAB PO SCH (08:42)
[2021-08-02] MEDS: FERROUS SULF 325 MG (IRON) TAB PO SCH (08:43)
[2021-08-02 09:22] VITALS: BP 127/64
--- NOTE | 2021-08-02 09:27 | Postpartum Progress Note ---
Note Note Day # 2 Subjective: Patient is without complaints. Ambulating, voiding. Tolerating a regular diet without nausea or vomiting. Normal lochia. Pain is well controlled with oral pain medications Objective: Physical Exam: General - Alert and oriented, no apparent distress Abdomen - Soft, appropriately tender to palpation, non-distended, fundus firm at umbilicus Extremities - no edema, negative Sourav's bilaterally Assessment: PPD 2 VAVD Plan: Routine care. Encourage breast feeding. Encourage ambulation. Ferrous sulfate supplementation. Plan for discharge today Vitals - Labs Vital Signs - I&O Vital Signs Date Time Temp Pulse Resp B/P (MAP) Pulse Ox O2 Delivery O2 Flow Rate FiO2 08/02/21 06:22 36.3 85 18 121/68 (85) 98 Room Air 08/01/21 23:18 36.3 89 18 127/70 (89) 99 Room Air 08/01/21 16:05 36.8 85 18 125/75 (92) Room Air 08/01/21 11:53 36.5 87 18 133/80 (97) Room Air Labs Microbiology 07/30/21 Urine Culture - Final, Complete Mixed Bacterial Zoila JAXON WOODY DO Aug 02, 2021 09:27
--- NOTE | 2021-08-06 03:54 | DISCHARGE SUMMARY ---
DATE OF SERVICE: ADMISSION DIAGNOSES: 1. A 36-year-old G2, P1 at 39 weeks gestation. 2. LGA fetus. 3. BMI greater than 40. 4. GBS negative. DISCHARGE DIAGNOSES: 1. A 36-year-old G2, P1 at 39 weeks gestation. 2. LGA fetus. 3. BMI greater than 40. 4. GBS negative. 5. day 2, vacuum-assisted vaginal delivery. ATTENDING PHYSICIAN: Jaxon Woody DO HOSPITAL SERVICES: Women services. HOSPITAL COURSE: Please see admission H and P from for complete details pertaining to the patient's admission presentation and plan of care. Please see delivery note from 07/31/2021 for complete details pertaining to the patient's labor course and delivery summary in detail including indications for vacuum-assisted delivery. course for this patient was fairly routine. On day 1, she was doing well. Lochia remained light. She was ambulating and voiding freely. Her vital signs remained stable. She did have a drop in her hemoglobin from 11.3 to 11.2. However, she was already on ferrous sulfate supplementation. This was discontinued. On day 2, the patient continued to do well and was ambulating and voiding freely. Pain remained well controlled. Due to the patient's clinical stability, the decision was made to discharge the patient home. She was given routine precautions and told to return to care if any concerns should arise. She was sent home on following medications including Lortab 5/325 one to two p.o. q.4-6 hours p.r.n. as needed for pain, #50 and Motrin 600 mg 1 p.o. q.6 hours p.r.n. as needed for pain, #80, Colace 100 mg 1 p.o. b.i.d. p.r.n. as needed for constipation, #60 and benzocaine Dermoplast topical spray and told to continue her vitamin. Discharge was facilitated at that point without further difficulty after all the patient's questions were answered pertaining to medication administration and at home precautions. Job ID: [id number] DocumentID: [id number] Dictated Date: 08/05/2021 11:45:30 Billet Cutter Date: 08/06/2021 03:53:51 Dictated By: JAXON WOODY DO
== END 2021-08-02 14:27 | disposition home or self-care (01) | DRG 806 ==
LOC: LDRP 18:52
PROVIDERS: ADMIT Obstetrics & Gynecology; ATTEND Obstetrics & Gynecology
PROC: 10E0XZZ Delivery of Products of Conception, External Approach (ICD-10-PCS; principal; 2021-07-31)
PROC: 0KQM0ZZ Repair Perineum Muscle, Open Approach (ICD-10-PCS; 2021-07-31)
PROC: 10907ZC Drainage of Amniotic Fluid, Therapeutic from Products of Conception, Via Natural or Artificial Opening (ICD-10-PCS; 2021-07-31)
DX: O69.81X0 Labor and delivery complicated by cord around neck, without compression, not applicable or unspecified (principal); D62 Acute posthemorrhagic anemia; Z37.0 Single live birth; Z3A.39 39 weeks gestation of pregnancy; O70.1 Second degree perineal laceration during delivery; O90.81 Anemia of the puerperium
CPT/HCPCS: 36415; 81000; 85025; 86850; 86900; 86901; 87088